=== PATIENT | male | born 1935 | race Two or more races ===

== ENCOUNTER → 2020-02-28 | Outpatient (CLI) | payer OTHER | END | disposition home or self-care (01) | LOC: RX STUDY 09:15 → RAD 09:32 | PROVIDERS: ATTEND Internal Medicine Gastroenterology | DX: K44.9 Diaphragmatic hernia without obstruction or gangrene (principal); J44.9 Chronic obstructive pulmonary disease, unspecified; J45.998 Other asthma; J70.8 Respiratory conditions due to other specified external agents; R04.2 Hemoptysis; J84.10 Pulmonary fibrosis, unspecified ==